=== PATIENT | male | born 1945 | race Two or more races ===

== ENCOUNTER → 2017-05-20 | Outpatient (CLI) | payer OTHER ==
[2017-05-21] MEDS: ZOLPIDEM 5 MG TABLET. PO (00:15)
== END | disposition home or self-care (01) ==
LOC: RT 18:35
DX: G47.30 Sleep apnea, unspecified (principal)
CPT/HCPCS: 95810

== ENCOUNTER → 2017-09-30 | Outpatient (CLI) | payer OTHER | END | disposition home or self-care (01) | LOC: US 07:02 | DX: I70.291 Other atherosclerosis of native arteries of extremities, right leg (principal) | CPT/HCPCS: 93926 ==

== ENCOUNTER → 2019-02-08 | Outpatient (CLI) | payer OTHER ==
--- NOTE | 2019-02-08 17:05 | RAD ---
EXAM: Left lower extremity arterial Doppler sonogram. HISTORY: Nonhealing ulcer of the left foot. TECHNIQUE: Florentino scale and color Doppler sonographic imaging of the left lower extremity arteries with spectral analysis was performed. COMPARISON: None. FINDINGS: There are triphasic and biphasic waveforms and normal peak systolic velocity throughout the left lower extremity arteries, with exception of an elevated peak systolic velocity within the distal posterior tibial artery measuring 414 cm/s. The peroneal artery is not seen. IMPRESSION: 1. Elevated peak systolic velocity within the distal posterior tibial artery, suggesting hemodynamically significant stenosis. The peroneal artery is not seen, and occlusion is not excluded. 2. Otherwise, unremarkable left lower extremity arterial Doppler sonogram. Electronically signed by: Danyelle Harp MD (02/08/2019 5:02 PM) [place] [id number]
== END | disposition home or self-care (01) ==
LOC: US 16:02
PROVIDERS: ATTEND Family Medicine
DX: L97.529 Non-pressure chronic ulcer of other part of left foot with unspecified severity (principal)
CPT/HCPCS: 93926